=== PATIENT | male | born 1945 | race Caucasian/White ===

== ENCOUNTER 2017-02-14 17:31 | Emergency (ER) | payer BC ==
[~2017-02-14 17:31] MED LIST: ACCU20 PO; APRES25 PO; ASA5GR PO; ASAB PO; ASABAYER PO; CORDARONE PO; COREG12 PO; COREG25 PO; CRESTOR10 PO; DIABET2.5 PO; GLUCPH PO; HYDROCHLOROT12.5 MG PO; HYDROCHLOROT25 MG PO; IMDUR30 PO; LEVEMIR SC; LIPITOR40 PO; NORV10 PO; PCET PO; PEP20 PO; PLAVIX PO; PROTONIX PO
[2017-02-14 18:50] LABS: BASOPHILS 0.3 %; BASOPHILS ABSOLUTE 0.02 10/3/uL (0.0-0.16); EOSINOPHILS 5.4 %; HEMATOCRIT 34.1 % (40.0-51.0); HEMOGLOBIN 11.8 g/dL (13.6-17.8); IMMATURE GRANULOCYTES 0.1 %; IMMATURE GRANULOCYTES ABSOLUTE 0.01 10/3/uL (0.0-0.11); LYMPHOCYTES 21.7 %; MEAN CORPUS HGB CONC 34.6 g/dL (32.0-36.0); MEAN CORPUSCULAR HEMOGLOB 31.1 pg (26.0-34.0); MEAN PLATELET VOLUME 10.3 fL (9.2-13.0); MONOCYTES 14.5 %; MONOCYTES ABSOLUTE 1.07 10/3/uL (0.21-1.20); NEUTROPHILS ABSOLUTE 4.29 10/3/uL (2.02-8.40); RBC DISTRIBUTION WIDTH 14.3 % (12.0-16.0); WHITE BLOOD CELLS 7.4 10/3/uL (4.5-10.5)
[2017-02-14 18:51] LABS: MANUAL DIFF NO %; PLATELET COUNT 204 10/3/uL (150-400); RED CELL COUNT 3.79 10/6/uL (4.7-6.1)
[2017-02-14 19:05] LABS: BUN (BLOOD UREA NITROGEN) 35 MG/DL (6-23); CALCIUM, SERUM 9.1 MG/DL (8.5-10.4); CHEST PAIN PROFILE TAT 0 Hrs 21 Mins; CHLORIDE, SERUM 108 MMOL/L (96-112); CO2 (CARBON DIOXIDE) 27 MMOL/L (24-34); CREATININE 2.24 MG/DL (0.70-1.30); GFR AFRICAN AMERICAN 33 ML/MIN (>=60); GFR NON AFRICAN AMERICAN 28 ML/MIN (>=60); GLUCOSE, SERUM 107 MG/DL (60-99); INTERNATIONAL NORMAL RATI 1.1 UNITS (-); POTASSIUM, SERUM 3.6 MMOL/L (3.5-5.3); PROTIME (NOT ORD) 14.5 SEC (12.0-14.5); SODIUM, SERUM 141 MMOL/L (135-148); TROPONIN I 0.03 NG/ML (<0.05)
[2017-02-14 19:06] LABS: PARTIAL THROMBO TIME 36.9 SEC (22.5-37.2)
== END 2017-02-14 20:03 | disposition home or self-care (01) ==
LOC: ER 17:31
PROVIDERS: Emergency Medicine
DX: R07.89 Other chest pain (principal); I12.0 Hypertensive chronic kidney disease with stage 5 chronic kidney disease or end stage renal disease; E11.22 Type 2 diabetes mellitus with diabetic chronic kidney disease; N18.5 Chronic kidney disease, stage 5; I25.10 Atherosclerotic heart disease of native coronary artery without angina pectoris; Z95.1 Presence of aortocoronary bypass graft; Z95.5 Presence of coronary angioplasty implant and graft; Z87.891 Personal history of nicotine dependence; Z88.0 Allergy status to penicillin; Z79.82 Long term (current) use of aspirin; Z79.899 Other long term (current) drug therapy
CPT/HCPCS: 71010; 80048; 83735; 84484; 85025; 85610; 85730; 99285

== ENCOUNTER 2017-03-29 10:01 | Inpatient (IN) | payer BC ==
--- NOTE | ~2017-03-29 | CN ---
Consultation Report [facility] [address] [facility] [address] [facility] [place]. [address] NAME: DANK WELLINGTON : 45 STATUS : ADM Sandra PAT#: [id number] AGE: 72 ADM/REG DATE : 03/29/17 MR#: [id number] REPORT SERV DATE: 03/29/17 DICTATED BY: ANDREW HARRELL DATE: 03/29/17 REPORT STATUS : Draft TRANSCRIBED BY: CARLOZ DATE: 03/29/17 CONSULTATION NOTE DATE OF CONSULTATION: 03/29/2017 PRIMARY VALVE ASSEMBLER: Dank Garza M.D. CHIEF COMPLAINT: Shortness of breath and chest pain. REASON FOR CONSULTATION: Abnormal troponin. SOURCE: The patient and the chart. HISTORY OF PRESENT ILLNESS: Mr. Wellington is a very pleasant, 72-year-old, white man with history of coronary artery disease, status post coronary artery bypass grafting, MIDCAB [place] [address] Hatch, as well as "WA and stents." He has known chronic kidney disease, stage IV to V and is trying to avoid dialysis. He was in his usual state of health until a couple weeks ago when he came to the ER for shortness of breath and then chest pain. He was sent home. Then, he came back today because of shortness of breath first and then later, he developed an episode of chest pain while sitting in his chair. The pain was on the left side, 5/10 in severity, sharp without any radiation, associated with diaphoresis, but no nausea, vomiting, or even shortness of breath at that time. It lasted about two hours and then went away. He has had these two episodes two weeks ago and today, but no other episodes. No swelling. No palpitations or syncope. No fever or chills. REVIEW OF SYSTEMS: All other systems are negative. ALLERGIES: PENICILLIN. MEDICATIONS AT HOME: Included amlodipine, aspirin, atorvastatin, Rocaltrol, carvedilol, clopidogrel, hydralazine, nitroglycerin, omega-3, pantoprazole, ranitidine, and Kionex. CARDIAC RISK FACTORS: Diabetes, hypertension, cholesterol, former tobacco. Denies family history. SOCIAL HISTORY: The patient lives in [place], [place]. . One daughter, who is alive and well. Retired. FAMILY HISTORY: Mother had myocardial infarction, but at age 87. PAST MEDICAL HISTORY: Significant for coronary artery disease, status post coronary artery bypass grafting with a robotic MIDCAB [address] Hatch. He also reports some type of myocardial infarction and stent in the past. Chronic kidney disease, stage IV. Congestive Consultation Report [facility] [address] [place]. [address] NAME: DANK WELLINGTON : 45 STATUS : ADM Sandra PAT#: [id number] AGE: 72 ADM/REG DATE : 03/29/17 MR#: [id number] REPORT SERV DATE: 03/29/17 DICTATED BY: ANDREW HARRELL DATE: 03/29/17 REPORT STATUS : Draft TRANSCRIBED BY: MODL DATE: 03/29/17 heart failure with diminished left ventricular systolic function. Last LVEF 35% to 40%. COPD. Status post gallbladder surgery. He has had AV fistula placement in the left arm. PHYSICAL EXAMINATION: GENERAL: He is a chronically ill-appearing, elderly white man, in no acute distress. VITAL SIGNS: Blood pressure 144/66, pulse 85, temperature 97.7, weight is 93 kilos, height is 185 cm. HEENT: Sclerae anicteric. Lips without cyanosis. NECK: Carotids 2+ and symmetrical. No bruits. No JVD. No thyromegaly. LUNGS: Clear to auscultation. No use of accessory muscles. HEART: Regular rate and rhythm without murmur, gallop, or rub. ABDOMEN: Positive bowel sounds. Soft, nontender. EXTREMITIES: Pulses 2+ and symmetrical. No cyanosis, clubbing, or edema. BACK: No CVA tenderness. MUSCULOSKELETAL: Good tone. NEUROLOGIC: Alert and oriented x3. LABORATORY EXAMINATION: Troponin of 2.77, initial troponin was 2.99. The white count was 7.1, hemoglobin 11.5, hematocrit 35.0, platelets 197,000. The INR 1.2, PTT of 102. Procalcitonin 0.77. Sodium 140, potassium 4.2, chloride 110, CO2 21, glucose 210, BUN 43, creatinine 2.51. The chest x-ray reveals mild bibasilar atelectasis due to low lung volumes. The EKG reveals sinus rhythm, LVH with QRS widening and repolarization abnormality. The anterolateral ST-T wave changes, slightly more prominent. Echocardiogram today revealed LVEF of 35%, compared to 35% to 40% in 2013, left ventricular and atrial chambers have progressively dilated, mild diastolic dysfunction, aortic sclerosis with mild stenosis. IMPRESSION: 1. Lvzpq-bw-bwieswa systolic congestive heart failure. 2. LVEF 35% by echo today. 3. Small elevation in troponin of unclear significance. 4. History of coronary artery disease status post MIDCAB 2013 and reported WA and stents in the past. 5. Chronic kidney disease, stage 4 to 5, not yet on dialysis. 6. History of chronic obstructive pulmonary disease. 7. Cardiac risk factors including diabetes, hypertension, cholesterol, and former tobacco. RECOMMENDATIONS: 1. Diuresis as per Nephrology. 2. Check CPK and MB. 3. Echo already done. 4. Medical therapy. I would not pursue invasive evaluation yet. The patient wants to avoid dialysis if at all possible, and he would be at significantly increased risk of acute kidney injury and possible dialysis with angiographic studies. Might consider noninvasive stress test later. Consultation Report [address] [place]. [address] NAME: DANK WELLINGTON : 45 STATUS : ADM Sandra PAT#: [id number] AGE: 72 ADM/REG DATE : 03/29/17 MR#: [id number] REPORT SERV DATE: 03/29/17 DICTATED BY: ANDREW HARRELL DATE: 03/29/17 REPORT STATUS : Draft TRANSCRIBED BY: CARLOZ DATE: 03/29/17 [facility]/CARLOZ Andrew Harrell M.D. / [id number] CC: Faith Solomon M.D.
--- NOTE | ~2017-03-29 | DS ---
Discharge Summary [facility] [address] [place]. [address] NAME: DANK APONTE : 45 STATUS : DIS IN PAT#: [id number] AGE: 72 ADM/REG DATE : 03/29/17 MR#: [id number] REPORT SERV DATE: 04/01/17 DICTATED BY: JONI LAMAR DATE: 03/31/17 REPORT STATUS : Draft TRANSCRIBED BY: MODL DATE: 03/31/17 ADMISSION DATE: 03/29/2017 DISCHARGE DATE: 03/31/2017 DISCHARGE DIAGNOSES: 1. Acute on chronic systolic congestive heart failure exacerbation as well as diastolic congestive heart failure exacerbation. 2. Acute hypoxic respiratory failure secondary to above. 3. Non-ST elevation myocardial infarction with troponin as high as 2.9 during this admission. 4. Chronic kidney disease with baseline creatinine of around 2.5 to 3, the patient has an AV fistula already. 5. Chronic obstructive pulmonary disease. 6. Coronary artery disease. 7. Hypertension. 8. Hyperlipidemia. 9. Diabetes type 2. CONSULTANTS: Cardiology. PROCEDURES: None. HOSPITAL COURSE: This is a 72-year-old gentleman who was actually transferred to our facility from [facility]. For details, please refer to my own H and P. In summary, the patient initially presented to [facility] in a respiratory distress and he needed to be on BiPAP for oxygen support; however, by the time the patient was transferred to our facility, the patient was on 3 liters of oxygen. The patient was treated with IV Lasix diuresis. The patient responded really well and he has lost about 5000 mL in total. The patient had a repeat echocardiogram, which showed an ejection fraction of 35% as well as okxv-la-uaobjavl diastolic dysfunction. The patient was not found to have any significant valvular disease. The patient was able to come off the oxygen after two days of IV Lasix diuresis and his renal function remained stable throughout the hospital stay. The patient's discharge creatinine is 2.63 whereas he was admitted with 2.51. The patient is being started on Lasix 40 mg p.o. daily as prior to this admission, the patient was not on any diuretics. The patient is also being started on Imdur 30 mg p.o. daily per Cardiology as a new medication. The patient is now being discharged home in stable condition with close outpatient followup instructions. DISPOSITION: Home. MEDICATIONS: 1. Lasix 40 mg p.o. daily. 2. Imdur 30 mg p.o. daily. 3. Otherwise, no medication changes. FOLLOWUP: Discharge Summary [place] [address] [facility] [address] NAME: DANK APONTE : 45 STATUS : DIS IN PAT#: [id number] AGE: 72 ADM/REG DATE : 03/29/17 MR#: [id number] REPORT SERV DATE: 04/01/17 DICTATED BY: JONI LAMAR DATE: 03/31/17 REPORT STATUS : Draft TRANSCRIBED BY: CARLOZ DATE: 03/31/17 1. Please follow up with Cardiology in the next two to three weeks. 2. Please follow up with Nephrology in the next one to two weeks. 3. Please follow up with PCP in the next one to two weeks. A total of 25 minutes spent in coordinating this patient's discharge today. DICTATED BY: Joni Lamar MD [facility] [place] Joni Lamar MD / [id number] CC: Joni Lamar MD
--- NOTE | ~2017-03-29 | HP ---
History And Physical [place] [address] [facility] [place]. [address] NAME: DANK APONTE : 45 STATUS : ADM Sandra PAT#: [id number] AGE: 72 ADM/REG DATE : 03/29/17 MR#: [id number] REPORT SERV DATE: 03/29/17 DICTATED BY: JONI MAGALLON DATE: 03/29/17 REPORT STATUS : Draft TRANSCRIBED BY: MODL DATE: 03/29/17 DATE OF ADMISSION: 03/29/2017 CHIEF COMPLAINT: Shortness of breath. HISTORY OF PRESENT ILLNESS: This is a 72-year-old gentleman with history of coronary artery disease, hypertension, hyperlipidemia, diabetes, chronic kidney disease as well as COPD presenting with a shortness of breath. The patient is actually transfer from [facility]. The patient was actually feeling fine up until last night when he was going to bed. He went to bed just fine, only to wake up gasping for air in the middle of the night. The patient reports that all of a sudden he was unable to breathe. The patient denies having had any chest pains, nausea, vomiting, or diaphoresis. The patient was rushed to the ER where he was found to be in a significant respiratory distress. The patient was started on BiPAP and according to chest x-ray that showed volume overload and pulmonary edema, the patient was given some IV Lasix. With the IV Lasix and the BiPAP, the patient has diuresed significantly and was able to come off the BiPAP and remained stable on 3 L of oxygen per nasal cannula prior to transfer. The reason for transfer is because the patient's initial troponin which was found to be 0.25, did go up to 1.76 and [facility] does not have Cardiology Service. On encounter, the patient appears quite comfortable on 3 L of oxygen per nasal cannula. The patient reports that he is breathing just fine and he feels back at baseline. REVIEW OF SYSTEMS: The patient denies any fevers or chills. Also, 14-point review of systems reviewed and negative other than mentioned above. MEDICATIONS: The list is still pending at this time. PAST MEDICAL HISTORY: 1. Coronary artery disease, status post cardiac stents as well as robotic MIDCAB in 2012. 2. Diabetes. 3. Hypertension. 4. Chronic kidney disease, for which the patient actually has AV fistula already put in. The patient is not on hemodialysis currently. 5. Hyperlipidemia. 6. COPD. PAST SURGICAL HISTORY: 1. Multiple orthopedic surgeries. 2. AV fistula placement in left arm. 3. Cholecystectomy. 4. Robotic MIDCAB in 2012. FAMILY HISTORY: Negative, the patient specifically denies any family history of heart diseases. History And Physical [address] [address] NAME: DANK APONTE : 45 STATUS : ADM Sandra PAT#: [id number] AGE: 72 ADM/REG DATE : 03/29/17 MR#: [id number] REPORT SERV DATE: 03/29/17 DICTATED BY: JONI MAGALLON DATE: 03/29/17 REPORT STATUS : Draft TRANSCRIBED BY: CARLOZ DATE: 03/29/17 SOCIAL HISTORY: The patient does not smoke, the patient has quit about 10 years ago. The patient also does not drink alcohol or use any illicit drugs. The patient lives at home with his up in [place], [place]. The patient is retired from [employer]. PHYSICAL EXAMINATION: VITAL SIGNS: Temperature 98.1, blood pressure 147/73, pulse 72, respiratory rate is 20, saturating 96% on 3 L of oxygen per nasal cannula. GENERAL: The patient is alert and oriented x3 with no focal neurologic deficits. The patient is awake, does not appear to be in acute distress, and he is cooperative. NECK: No JVD. No lymphadenopathy. Normal thyroid. CHEST: No midline sternotomy scar and no tenderness to palpation. LUNGS: Clear to auscultation bilaterally with normal respiratory effort on 3 L of oxygen per nasal cannula. CARDIOVASCULAR: Regular rate and rhythm with no murmurs, rubs, or gallops, and PMI is nondisplaced. ABDOMEN: Soft, nontender, with active bowel sounds and no organomegaly. EXTREMITIES: No edema. Normal distal pulses. No calf tenderness. SKIN: Clean, dry, warm, and intact. LABORATORY DATA: Sodium is 142, potassium 4.2, chloride 106, BUN 38, creatinine 2.8, blood sugar is 247. CBC: White blood cell count is 9.4, hemoglobin 12.7, platelets 262. BNP was 1270. Troponin was as high as 1.76. ABGs; pH 7.23, pCO2 of 42, PO2 of 97, and oxygen saturation of 99% on 50% FiO2 per BiPAP. Chest x-ray per report showed pulmonary edema and volume overload. ASSESSMENT AND PLAN: This is a 72-year-old gentleman with history of coronary artery disease, chronic obstructive pulmonary disease, hypertension, diabetes, chronic kidney disease, presenting with acute hypoxic respiratory failure due to a new onset congestive heart failure. 1. Acute hypoxic respiratory failure. 2. New onset congestive heart failure, with elevated troponin. 3. Coronary artery disease. 4. Chronic kidney disease, with baseline creatinine of around 2.5 to 3. 5. Chronic obstructive pulmonary disease. 6. Hypertension. 7. Hyperlipidemia. 8. Uncontrolled diabetes type 2. PLAN: My plan is to admit the patient under telemetry monitoring. The patient will be given oxygen support and bronchodilator therapies. The patient will also be given IV Lasix diuresis. In's and out's will be closely monitored as well as daily weights and daily electrolytes and renal function. Cardiology Service will be requested and the patient will be maintained on daily aspirin, Lipitor as well as heparin drip for now. For the rest of stable past medical conditions including hypertension, hyperlipidemia, COPD et al, I will continue home medications. Standard DVT prophylaxis. The patient is full code at this History And Physical [address] [address] NAME: DANK APONTE : 45 STATUS : ADM Sandra PAT#: [id number] AGE: 72 ADM/REG DATE : 03/29/17 MR#: [id number] REPORT SERV DATE: 03/29/17 DICTATED BY: JONI MAGALLON DATE: 03/29/17 REPORT STATUS : Draft TRANSCRIBED BY: CARLOZ DATE: 03/29/17 time. [facility] [place]CARLOZ Joni Magallon MD / [id number] CC: Faith Solomon M.D.
[2017-03-29 12:25] LABS: BASOPHILS 0 %; EOSINOPHILS 0 %; HEMOGLOBIN 11.5 g/dL (13.6-17.8); IMMATURE GRANULOCYTES 0.1 %; IMMATURE GRANULOCYTES ABSOLUTE 0.01 10/3/uL (0.0-0.11); LYMPHOCYTES ABSOLUTE 0.64 10/3/uL (0.67-4.30); MEAN CORPUS HGB CONC 32.9 g/dL (32.0-36.0); MEAN CORPUSCULAR HEMOGLOB 30.4 pg (26.0-34.0); MEAN CORPUSCULAR VOLUME 92.6 fL (80-100); MEAN PLATELET VOLUME 9.9 fL (9.2-13.0); MONOCYTES 1.3 %; MONOCYTES ABSOLUTE 0.09 10/3/uL (0.21-1.20); NEUTROPHILS 89.6 %; NEUTROPHILS ABSOLUTE 6.39 10/3/uL (2.02-8.40); PLATELET COUNT 197 10/3/uL (150-400); RBC DISTRIBUTION WIDTH 14.2 % (12.0-16.0); RED CELL COUNT 3.78 10/6/uL (4.7-6.1); WHITE BLOOD CELLS 7.1 10/3/uL (4.5-10.5)
[2017-03-29 12:26] LABS: MANUAL DIFF NO %
[2017-03-29 12:31] LABS: INTERNATIONAL NORMAL RATI 1.2 UNITS (-); PROTIME (NOT ORD) 15.3 SEC (12.0-14.5)
[2017-03-29 12:33] LABS: PARTIAL THROMBO TIME 102.4 SEC (22.5-37.2)
[2017-03-29] MEDS ORDERED: ASAB PO (12:39)
[2017-03-29] MEDS ORDERED: COREG25 PO (12:40)
[2017-03-29] MEDS ORDERED: ZANTAC 150 PO (12:40)
[2017-03-29] MEDS ORDERED: ROCALTROL 0.0.25 MCG PO (12:40)
[2017-03-29] MEDS ORDERED: FISH-EPA1000 MG PO (12:40)
[2017-03-29] MEDS ORDERED: NORV10 PO (12:41)
[2017-03-29] MEDS ORDERED: PROTONIX PO (12:41)
[2017-03-29 12:42] LABS: A/G RATIO 0.9 (0.7-1.9); ALBUMIN 3.2 G/DL (3.5-5.0); CALCIUM, SERUM 9.2 MG/DL (8.5-10.4); CHLORIDE, SERUM 110 MMOL/L (96-112); CREATININE 2.51 MG/DL (0.70-1.30); GFR AFRICAN AMERICAN 29 ML/MIN (>=60); GFR NON AFRICAN AMERICAN 25 ML/MIN (>=60); GLOBULIN 3.5 G/DL (2.5-4.1); POTASSIUM, SERUM 4.2 MMOL/L (3.5-5.3); SGOT(AST) 26 U/L (5-40); SGPT(ALT) 20 U/L (5-65); SODIUM, SERUM 140 MMOL/L (135-148); TOTAL BILIRUBIN 0.5 MG/DL (0-1.2); TOTAL PROTEIN 6.7 G/DL (6.0-8.5)
[2017-03-29] MEDS ORDERED: PLAVIX PO (12:42)
[2017-03-29] MEDS ORDERED: NITROSTAT0.4 MG SL (12:42)
[2017-03-29] MEDS ORDERED: APRES50 PO (12:43)
[2017-03-29] MEDS ORDERED: SODIUM POLYSTYRENE SULFONATE 15 GM/60 ML PO (12:43)
[2017-03-29 12:44] LABS: ALKALINE PHOSPHATASE 130 U/L (45-117); BUN (BLOOD UREA NITROGEN) 43 MG/DL (6-23); CO2 (CARBON DIOXIDE) 21 MMOL/L (24-34); GLUCOSE, SERUM 210 MG/DL (60-99); TROPONIN I 2.99 NG/ML (<0.05)
[2017-03-29] MEDS ORDERED: LIPITOR40 PO (12:48)
[2017-03-29 14:23] LABS: PROCALCITONIN 0.77 ng/mL (<0.5)
[2017-03-29 19:58] LABS: TROPONIN I 2.77 NG/ML (<0.05)
[2017-03-29 22:18] LABS: CK-MB 7.1 NG/ML
[2017-03-29 22:20] LABS: CKMB INDEX (NOT ORD) 8.4
[2017-03-30 05:25] LABS: BASOPHILS 0 %; EOSINOPHILS 0 %; HEMATOCRIT 32.1 % (40.0-51.0); HEMOGLOBIN 10.9 g/dL (13.6-17.8); IMMATURE GRANULOCYTES 0.2 %; IMMATURE GRANULOCYTES ABSOLUTE 0.02 10/3/uL (0.0-0.11); LYMPHOCYTES ABSOLUTE 1.13 10/3/uL (0.67-4.30); MEAN CORPUSCULAR HEMOGLOB 30.6 pg (26.0-34.0); MEAN CORPUSCULAR VOLUME 90.2 fL (80-100); MEAN PLATELET VOLUME 10.9 fL (9.2-13.0); MONOCYTES 8.3 %; MONOCYTES ABSOLUTE 0.85 10/3/uL (0.21-1.20); NEUTROPHILS 80.5 %; PLATELET COUNT 212 10/3/uL (150-400); RBC DISTRIBUTION WIDTH 14.1 % (12.0-16.0); RED CELL COUNT 3.56 10/6/uL (4.7-6.1)
[2017-03-30 05:26] LABS: MANUAL DIFF NO %; PARTIAL THROMBO TIME 34.9 SEC (22.5-37.2); WHITE BLOOD CELLS 10.3 10/3/uL (4.5-10.5)
[2017-03-30 05:40] LABS: ALBUMIN 3.1 G/DL (3.5-5.0); CALCIUM, SERUM 9.2 MG/DL (8.5-10.4); CHLORIDE, SERUM 106 MMOL/L (96-112); CO2 (CARBON DIOXIDE) 24 MMOL/L (24-34); CREATININE 2.79 MG/DL (0.70-1.30); GFR AFRICAN AMERICAN 25 ML/MIN (>=60); GFR NON AFRICAN AMERICAN 22 ML/MIN (>=60); GLUCOSE, SERUM 181 MG/DL (60-99); POTASSIUM, SERUM 3.8 MMOL/L (3.5-5.3); SODIUM, SERUM 140 MMOL/L (135-148)
[2017-03-30 05:42] LABS: BUN (BLOOD UREA NITROGEN) 47 MG/DL (6-23); CK-MB 4.1 NG/ML; CPK 56 U/L (0-200)
[2017-03-31 06:45] LABS: BASOPHILS 0.2 %; BASOPHILS ABSOLUTE 0.02 10/3/uL (0.0-0.16); EOSINOPHILS 0.6 %; EOSINOPHILS ABSOLUTE 0.06 10/3/uL (0.0-0.53); HEMATOCRIT 33.8 % (40.0-51.0); HEMOGLOBIN 11.6 g/dL (13.6-17.8); IMMATURE GRANULOCYTES 0.2 %; IMMATURE GRANULOCYTES ABSOLUTE 0.02 10/3/uL (0.0-0.11); LYMPHOCYTES ABSOLUTE 2.27 10/3/uL (0.67-4.30); MEAN CORPUS HGB CONC 34.3 g/dL (32.0-36.0); MEAN CORPUSCULAR VOLUME 90.4 fL (80-100); MONOCYTES 12.4 %; MONOCYTES ABSOLUTE 1.17 10/3/uL (0.21-1.20); NEUTROPHILS 62.6 %; PLATELET COUNT 198 10/3/uL (150-400); RBC DISTRIBUTION WIDTH 14.2 % (12.0-16.0); RED CELL COUNT 3.74 10/6/uL (4.7-6.1); WHITE BLOOD CELLS 9.4 10/3/uL (4.5-10.5)
[2017-03-31 06:47] LABS: MANUAL DIFF NO %
[2017-03-31 07:03] LABS: BUN (BLOOD UREA NITROGEN) 49 MG/DL (6-23); CALCIUM, SERUM 9.4 MG/DL (8.5-10.4); CHLORIDE, SERUM 107 MMOL/L (96-112); CO2 (CARBON DIOXIDE) 25 MMOL/L (24-34); CREATININE 2.63 MG/DL (0.70-1.30); GFR AFRICAN AMERICAN 27 ML/MIN (>=60); GFR NON AFRICAN AMERICAN 23 ML/MIN (>=60); POTASSIUM, SERUM 3.5 MMOL/L (3.5-5.3); SODIUM, SERUM 140 MMOL/L (135-148)
[2017-03-31 07:04] LABS: GLUCOSE, SERUM 105 MG/DL (60-99)
[2017-03-31] MEDS ORDERED: IMDUR30 PO (11:08)
[2017-03-31] MEDS ORDERED: L40 PO (11:11)
== END 2017-03-31 13:36 | disposition home or self-care (01) | DRG 280 ==
LOC: 2SO 10:01
PROVIDERS: Hospitalist; Internal Medicine
PROC: 5A09457 Assistance with Respiratory Ventilation, 24-96 Consecutive Hours, Continuous Positive Airway Pressure (ICD-10-PCS; principal; 2017-03-29)
DX: I21.4 Non-ST elevation (NSTEMI) myocardial infarction (principal); I50.43 Acute on chronic combined systolic (congestive) and diastolic (congestive) heart failure; J96.01 Acute respiratory failure with hypoxia; N18.5 Chronic kidney disease, stage 5; I13.0 Hypertensive heart and chronic kidney disease with heart failure and stage 1 through stage 4 chronic kidney disease, or unspecified chronic kidney disease; E11.22 Type 2 diabetes mellitus with diabetic chronic kidney disease; I25.10 Atherosclerotic heart disease of native coronary artery without angina pectoris; E78.5 Hyperlipidemia, unspecified; E11.65 Type 2 diabetes mellitus with hyperglycemia; J44.9 Chronic obstructive pulmonary disease, unspecified; E78.00 Pure hypercholesterolemia, unspecified; Z95.1 Presence of aortocoronary bypass graft; Z88.0 Allergy status to penicillin; Z87.891 Personal history of nicotine dependence; Z82.49 Family history of ischemic heart disease and other diseases of the circulatory system; Z95.5 Presence of coronary angioplasty implant and graft
CPT/HCPCS: 71010; 80048; 80053; 80069; 82550; 82553; 82962; 83036; 83735; 84145; 84484; 85025; 85610; 85730; 93005; 93306; A9270-GY